=== PATIENT | female | born 2000 | race Caucasian/White ===

== ENCOUNTER 2025-02-22 08:55 | Day surgery (SDC) | payer OTHER, SELFPAY ==
[2025-02-22] VITALS (12 sets, daily range): BP systolic 124–145; BP diastolic 76–88; PULSE 65–87; RESP 14–16; TEMP 36.5–36.9; O2SAT 97–100; BMI 25.8; BMI 25.7
--- OUTSIDE RECORDS SUMMARY | 2025-02-22 08:57 | XMS_ITS | Clinical Summary ---
Author Organization [facility] Address [address] [place] [id number] Care Team Providers Care Termite Renewal Inspector Name Role Phone Pcp, No Primary Care Provider Unavailabl e Allergies No known active allergies Medications cefdinir 300 mg capsule Take 1 Capsule by mouth two times daily. 02/18/2025 Active Hospital, Clinic, or Other Facility Administered Medication Ordered Dose Route Frequency Start Date End Date Status copper intrauterine device (PARAGARD)Indications:pregna ncy contraception 1 Device IU Q 10 YEARS 01/11/2021 Active Active Problems Problem Noted Date Diagnosed Date Enlargement of lymph nodes 06/07/2008 Encounters Date Type Department Care Team Description 02/22/2025 8:35 AM CDT Office Visit [facility] [address] [place] [address] Sharmila Brown PA Throat Problem 02/22/2025 Travel 12/07/2024 9:25 AM CDT Office Visit [facility] [address] [place] [address] Sharmila Brown PA Cough 12/07/2024 Travel from Last 3 Months Immunizations Immunization Administration Dates Next Due DTaP 12/04/2005, 2,04/07/2001,01/31,2000 HIB-HepB (Comvax) 09/15/2001,01/31/2001,10/28/19 01 HPV 9 (Gardasil 9) 04/06/2019 Hepatitis A (Peds) 04/06/2019,06/08/2013 Human Papilloma Virus Vaccine 06/08/2013 Inactivated Polio Vaccine 12/04/2005,03/2002,01/31/2001,10/28 MENINGOCOCCAL VACCINE 2 VIAL [id number] (MENVEO) 04/06/2019 MMR 12/04/2005,02/13/2002 Meningococcal Vaccine (Menactra) 06/08/2013 Pneumococcal conj 7-Valent (Prevnar 7) 2 Tdap 04/27/2013 Varicella Vaccine 04/27/2013,09/15/2001 Family History Medical History Relation Name Comments No Known Problems Brother Hyperlipidemia Father Other Maternal Grandmother Heart m urmur Other Maternal Uncle Heart murmur Thyroid Disease Mother Cancer Paternal Grandfather ?lung No Known Problems Sister Asthma No Family History Relation Name Status Comments Brother Alive Father Alive Maternal Grandfather Alive Maternal Grandmother Alive Maternal Uncle Mother Alive Paternal Grandfather Paternal Grandmother Alive Sister Alive Social History Tobacco Use Types Packs/Day Years Used Date Smoking Tobacco: Never Smokeless Tobacco: Never Tobacco Cessation:Counseling Given: Yes Alcohol Use Standard Drinks/Week Comments Not Currently 0 (1 standard drink = 0.6 oz pur e alcohol) occasionally PHQ-2 Answer Date Recorded PHQ-2 TOTAL SCORE 0 05/04/2020 Social Connections Answer Date Recorded Do you often feel lonely or isolated from those around you? 0 12/07/2024 Financial Resource Strain Answer Date R ecorded Difficulty of Paying Living Expenses 3 12/07/2024 Difficulty of Paying Living Expenses Not on file 12/07/2024 Food Insecurity Answer Date Recorded Do you worry your food will run out before you are able to buy more? 1 12/07/2024 Transportation Needs Answer Date Record ed Does lack of transportation keep you from medica l appointments? 1 12/07/2024 Does lack of transportation keep you from work, meetings or getting things that you need? 1 12/07/2024 Housing Stability Answer Date Recorded What is your housing situation today? 1 12/07/2024 Utilities Answer Date Recorded Do you have trouble paying f or utilities (for example, heat, electricity, water, phone)? 1 12/07/2024 Comments No Sex and Gender Information Value Date Recorded Sex Assigned at Female 12/28/2020 7:11 AM CDT Legal Sex Female 5:42 AM MACHINE ROUGH ROUNDER Gender Identity Female 12/28/2020 7:11 AM CDT Sexual Orientation Straight 12/28/2020 7: 11 AM CDT Obstetrics History Last Filed Vital Signs Vital Sign Reading Time Taken Comments Blood Pressure 133/77 02/22/2025 8:27 AM CDT Pulse 70 02/22/2025 8:27 AM CDT Temperature 36.8 C (98.2 F) 02/22/2025 8:27 AM CDT Respiratory Rate - - Oxygen Saturation 99% 02/22/2025 8:27 AM CDT Inhaled Oxygen Concentration - - Weight 72.5 kg (159 lb 12.8 oz) 02/22/2025 8:27 AM CDT Height 165.1 cm (5' 5) 01/11/2021 7:31 AM CDT Body Mass Index - - Plan of Treatment Health Maintenance Due Date Last Done Comments HIV for age 15-65 2015 Hepatitis C screening for age 18-79 2018 Chlamydia for age 16-24 05/04/2021 05/04/2020 Depression screening for age 12+ 05/05/2021 05/05/2020, 05/04/2020, 04/06/2019 Pap test for age 21-65 2021 BMI (ht and wt on same day) for age 18+ 01/11/2022 01/11/2021, 12/28/2020, 05/04/2020, Additional history exists Tetanus booster 04/27/2023 04/27/2013 COVID-19 vaccine series ( season) 2024 05/29/2021, 04/21/2021 Influenza Vaccine (Season Ended) 2025 Hepatitis B series for 19+ Completed 09/15, 01/31/2001, 2000 Pneumococcal series for age 6-49 Aged Out 09/15/2001 No longer eligible based on patient's age to complete this topic Tdap Completed 04/27/2013 HPV series for age 9-26 Completed 04/06/2019, 06/08 Procedures Procedure Name Priority Date/Time Associated Diagnosis Comments THROAT RAPID STREP ONLY CLINIC Routine 12/07/2024 9:33 AM CDT Sore throat GC CHLAMYDIA TRACH PROBE Routine 05/04/2020 9:37 AM CDT Screen for STD (sexually transmitted disease) from Last 3 Months or Most Recently Relevant to Health Maintenance Results * THROAT RAPID STREP ONLY CLINIC (12/07/2024 9:33 AM CDT) Pathologist [facility] POC, GROUP A STREP NOT DETECTED NOT DETECTED [facility] Comment: The [employer] [employer] recommends that a throat culture be performed if a rapid group A streptococcus assay yields a negative result. [employer] recommends Streptococcus, Group A culture. Throat SPECIMEN FROM THROAT / Unknown 12/07/2024 9:33 AM CDT 12/07/2024 9:34 AM CDT Sharmila TRAMMELL MICROBIOLOGY Final Result [facility] [address] [place] [address], [facility] [address] [place] [address] * GC CHLAMYDIA TRACH PROBE (05/04/2020 9:37 AM CDT) Pathologist [facility] CHLAMYDIA PROBE Negative 0 1:16 PM CDT [facility] N GONORRHOEAE PROBE Negative 05/05/2020 1:16 PM CDT [facility] Other SPECIMEN FROM UTERINE CERVIX / Unknown Non-Blood / Unknown 05/04/2020 9:37 AM CDT 05/04/2020 9:47 AM CDT Claire TRAMMELL MICROBIOLOGY Final Result [facility] [address] [place] [address], [place] from Last 3 Months or Most Recently Relevant to Health Maintenance Insurance [employer] [place] [id number] Care Teams Termite Renewal Inspector Relationship Specialty Start Date End Date Pcp, No . PCP - General 11/16/15
--- OUTSIDE RECORDS SUMMARY | 2025-02-22 08:57 | XMS_ITS | Clinical Summary ---
Author Organization [facility] Address [address] [place], [place] [id number] Care Team Providers Care Ux Engineer Name Role Phone Establish, Need To MD Primary Care Provider [phone] Source Comments If you need additional information that is not available on Care Everywhere, please contact our Medical Records Department during business hours (Saturday - Saturday, 8 am - 5 pm) at . During nonbusiness hours, please contact our Trauma and Emergency Center at .[facility] and [facility] Allergies No known active allergies Medications * Medications may not be up to date as of this document. Always verify current medications with the patient. norethindrone ac-eth estradiol (09/28, , PO) Take by mouth Active Active Problems No known active problems Social History Tobacco Use Types Packs/Day Years Used Date Smoking Tobacco: Never Smokeless Tobacco: Never Depression ([facility]) Answer Date Recorded Depression Screening Score: 0 11/07 PHQ-4 TOTAL SCORE 0 11/19/2019 PHQ9 Not on file 11/19/2019 Suicide Risk Alert Not on file 11/19/2019 Comments No Sex and Gender Information Value Date Recorded Sex Assigned at Not on file Legal Sex Female 2:50 PM ADON Gender Identity Not on file Sexual Orientation Not on file Obstetrics History Last Filed Vital Signs Vital Sign Reading Time Taken Comments Blood Pressure 124/68 11/19/2019 11:12 AM CDT Pulse 86 11/19/2019 11:12 AM CDT Temperature 36.9 C (98.5 F) 11/19/2019 11:12 AM CDT Respiratory Rate 18 11/19/2019 11:1 2 AM CDT Oxygen Saturation 99% 11/19/2019 11: 12 AM CDT Inhaled Oxygen Concentration - - Weight 73.8 kg (162 lb 12.8 oz) 020 11:12 AM CDT Height 162.6 cm (5' 4) 09/27/2019 2:55 PM ADON Body Mass Index 27.94 09/27/2019 2:55 PM ADON Plan of Treatment Health Maintenance Due Date Last Done Comments CHLAMYDIA SCREEN 2016 CERVICAL CANCER SCREENING 2018 LIPID SCREEN 2018 WELLNESS VISIT 2018 PERTUSSIS 2019 DEPRESSION/ANXIETY PHQ4 11/18/2020 11/19/19 20, 11/19/2019, 11/19/2019 DTaP/Tdap/Td Vaccine (7 - Td or Tdap) 04/27/2023 04/27/2013, 12/04/2005, 02/13/2002, Additional history exists COVID-19 Vaccine ( season) 2024 Influenza Vaccine (Season Ended) 2025 RSV Vaccines (1 - 1-dose 75+ series) 2075 Hepatitis B Vaccine Completed 09/15/2001, 01/31/2001, 2000 Pneumococcal Vaccine: Pediatrics (0 to 5 Years) and At-Risk Patients (6 to 49 Years) Aged Out 09/15/2001 No longer eligible based on patient's age to complete this topic POLIO (IPV) Vaccine Completed 12/04/2005, 02/13/2002, 01/31/2001, Additional history exists HPV Vaccine Completed 04/06/2019, 06/08/2013 Insurance [facility] [place] [address] Care Teams Ux Engineer Relationship Specialty Start Date End Date Establish, Need To, [address] [facility] [place] [place], [place] [id number] PCP - General INSURANCE SALESPERSON 09/27/19
--- NOTE | 2025-02-22 09:17 | CRLHL7_ITS ---
For Patients: As a result of the Century Cures Act, medical imaging exams and procedure reports are released immediately into your electronic medical record. You may view this report before your referring provider. If you have questions, please contact your health care provider. INDICATION: Renetta throat, left-sided pain. COMPARISON: None. TECHNIQUE: CT of the neck with contrast. Multiplanar axial, coronal, and sagittal reformats were reconstructed. Intravenous contrast: 75 mL Isovue 370. FINDINGS: Lymph nodes: There are bilateral enlarged cervical lymph nodes that maintain a normal len contour in len enhancement. The largest lymph node is on the left at level II and measures 1.4 x 1.9 cm on series 5, image 36. Parotid and submandibular glands: Normal. Thyroid gland: Normal. Tonsils, airway, and parapharyngeal spaces: Enlarged hyperenhancing adenoid tissue, palatine tonsils, and lingual tonsils. There is a rim enhancing abscess in the left peritonsillar soft tissues that measures 2.6 x 2.0 x 2.4 cm (AP by transverse by cc). There is adjacent soft tissue edema. There is some effacement of the airway at that level without complete obstruction. The epiglottis and aryepiglottic folds are normal. The subglottic trachea is normal. Paranasal sinus: Small mucocele in the floor of the right maxillary sinus. No mucosal thickening or air-fluid levels. Soft tissues: Normal. No swelling. No foreign body. Arteries: No atherosclerosis. Veins: No deep vein thrombosis. Lung apices: Normal. Bones: a No focal bone lesions. Normal for age. Included intracranial contents, orbits and mastoids: Normal. IMPRESSION: Tonsillitis. Left peritonsillar abscess measures up to 2.6 centimeters. Effacement of the posterior oropharyngeal airway without complete obstruction. Reactive appearing bilateral cervical lymph nodes. Please note that all CT scans at this facility use dose modulation, iterative reconstruction, and/or weight-based dosing when appropriate to reduce radiation dose to as low as reasonably achievable. Dictated by Jazmine Jernigan MD @ 02/22/2025 10:22:49 AM (Electronically Signed)
--- NOTE | 2025-02-22 09:18 | ED_ITS ---
HPI - General Adult General Chief complaint: Sore Throat Stated complaint: can't open jaw all the way Time Seen by Provider: 02/22/25 09:14 Source: patient Mode of arrival: ambulatory Limitations: no limitations History of Present Illness HPI narrative: 24-year-old female sent over from the [facility] with concerns of peritonsillar abscess. Patient had strep pharyngitis approximately 3 weeks ago was treated and states that her symptoms had resolved. Approximately 1 week ago started developing sore throat again, was seen in the urgent care and started on cefdinir. States that symptoms really have not improved and ever since 4 days ago, symptoms have actually been getting worse. She describes a swelling in the back of the throat, pain, difficulty opening closing her mouth. She has been doing her best to eat and stay hydrated. No known fevers. Patient has a history of a peritonsillar abscess in 2019. Related Data Previous Rx's ?Medication ?Instructions ?Recorded cefdinir 300 mg capsule 300 mg PO Q12H 10 days #20 c aps 02/18/25 Allergies Allergy/AdvReac Type Severity Reaction Status Date / Time No Known Drug Allergies Allergy Verified 02/22/25 10:14 Review of Systems Status of ROS: Reports: 6 or more systems reviewed and unremarkable except as noted in History and below PFSH FOR[facility]LY [facility], [facility] Social History Smoking Status: Never smoker How often do you have a drink containing alcohol: never AUDIT-C Alcohol total score: 0 Non-prescribed substance use: denies use Exam Narrative: Exam Narrative: Well-nourished well-developed patient in no acute distress. Alert and oriented. Answers questions appropriately. Mood and affect are appropriate. Thoughts are goal oriented and rational. No tangential or magical thinking noted. Patient speaks in full sentences without needing to catch Her breath, however, she does have an obvious difficult time opening her mouth. HEENT: Normocephalic atraumatic. Pupils are equally round reactive to light. Extraocular muscles are intact. Conjunctivae are moist without any icterus note d. Moist mucous membranes. Posterior pharynx Shows left-sided tonsillar swelling and erythema, soft palate is protruding forward and is erythematous. Skin: Well perfused without any obvious rashes. Const: Vital Signs, click to edit/add: Vital Signs - 24 hr 02/22/25 08:58 02/22/25 11:00 Temperature 98.4 F Pulse Rate 68 Pulse Rate [Right Pulse Oximeter] 83 Respiratory Rate 16 16 Blood Pressure 138/88 Blood Pressure [Le ft Upper Arm] 145/78 H Pulse Oximetry 100 99 Oxygen Delivery Me thod Room Air Course Course ED Course: CT of the neck was ordered: This showed a 2.6 cm peritonsillar abscess. Labs show slightly elevated white count 11.3, hemoglobin 10.5, normal platelet count. Negative mono and negative strep A. Consulted with Dr. Rodriguez, who will take the patient to the OR. Vital Signs Vital signs: Initial Vital Signs Temperature 98.4 F 02/22/25 08:58 Temperature Source Temporal Artery Scan 02/22/25 08:58 Pulse Rate 83 02/22/25 08:58 Pulse Rhythm Regular 02/22/25 08:58 Pulse Strength 3+ Normal 02/22/25 08:58 Respiratory Rate 16 02/22/25 08:58 Blood Pressure 145/78 H 02/22/25 08:58 Blood Pressure Mean 100 02/22/25 08:58 Blood Pressure Position Sitting 02/22/25 08:58 Pulse Oximetry 100 02/22/25 08:58 Oxygen Delivery Method Room Air 02/22/25 08:58 Vital Signs Temperature 98.4 F 02/22/25 08:58 Pulse Rate 83 02/22/25 08:58 Respiratory Rate 16 02/22/25 08:58 Blood Pressure 145/78 H 02/22/25 08:58 Pulse Oximetry 100 02/22/25 08:58 Oxygen Delivery Method Room Air 02/22/25 08:58 Temperature 98.4 F 02/22/25 08:58 Pulse Rate 68 02/22/25 11:00 Respiratory Rate 16 02/22/25 11:00 Blood Pressure 138/88 02/22/25 11:00 Pulse Oximetry 99 02/22/25 11:00 Oxygen Delivery Method Room Air 02/22/25 08:58 Medical Decision Making MDM Narrative Medical decision making narrative: 24-year-old female with a peritonsillar abscess, management per above. Lab Data Lab results reviewed: Yes I reviewed the patient's lab results Labs: Lab Results 02/22/25 Range/Units 09:30 WBC 11.32 H (4.50-11.00) K/uL RBC 3.67 L (4.00-5.20) m/uL Hgb 10.5 L (12.0-16.0) gm/dL Hct 32.8 L (33.0-51.0) % MCV 89 (80-100) fL MCH 29 (26-34) pg MCHC 32 (32-36) gm/dL RDW Coeff of Sandra 12.8 (11.5-15.5) % Plt Count 381 (140-440) K/uL Neut % (Auto) 74.2 H (42.0-72.0) % Lymph % (Auto) 14.8 L (20-44) % Nicholas % (Auto) 9.2 (0.0-11.0) % Eos % (Auto) 1.4 (0.0-7.0) % Baso % (Auto) 0.2 (0.0-3.0) % Neut # (Auto) 8.40 H (1.7-7.0) K/uL Lymph # (Auto) 1.70 (0.90-2.90) K/uL Nicholas # (Auto) 1.00 H (0.00-0.90) K/UL Eos # (Auto) 0.20 (0.00-0.50) K/uL Baso # (Auto) 0.00 (0.00-0.30) K/uL Abs Immat Gran (auto) 0.00 (0.00-0.30) K/uL Imm/Tot Granulo (auto) 0.2 % Monoscreen Negative (Negative) Group A Strep DNA NOT DETECTED (Not Detectd) Imaging Data Soft tissue CT neck: Attestation: I have reviewed the pertinent imaging results. Radiologist's impression: TECHNIQUE: CT of the neck with contrast. Multiplanar axial, coronal, and sagittal reformats were reconstructed. Intravenous contrast: 75 mL Isovue 370. FINDINGS: Lymph nodes: There are bilateral enlarged cervical lymph nodes that maintain a normal len contour in len enhancement. The largest lymph node is on the left at level II and measures 1.4 x 1.9 cm on series 5, image 36. Parotid and submandibular glands: Normal. Thyroid gland: Normal. Tonsils, airway, and parapharyngeal spaces: Enlarged hyperenhancing adenoid tissue, palatine tonsils, and lingual tonsils. There is a rim enhancing abscess in the left peritonsillar soft tissues that measures 2.6 x 2.0 x 2.4 cm (AP by transverse by cc). There is adjacent soft tissue edema. There is some effacement of the airway at that level without complete obstruction. The epiglottis and aryepiglottic folds are normal. The subglottic trachea is normal. Paranasal sinus: Small mucocele in the floor of the right maxillary sinus. No mucosal thickening or air-fluid levels. Soft tissues: Normal. No swelling. No foreign body. Arteries: No atherosclerosis. Veins: No deep vein thrombosis. Lung apices: Normal. Bones: a No focal bone lesions. Normal for age. Included intracranial contents, orbits and mastoids: Normal. IMPRESSION: Tonsillitis. Left peritonsillar abscess measures up to 2.6 centimeters. Effacement of the posterior oropharyngeal airway without complete obstruction. Reactive appearing bilateral cervical lymph nodes. Discharge Plan Discharge Clinical Impression: Abscess, peritonsillar Patient Disposition: XFER to OR Condition: Stable Follow Up/Referrals: Provider,Not a Local [Primary Care Provider, Family Practice]
[2025-02-22 09:38] LABS: Basophils Percent Auto 0.2 % (0.0-3.0); Eosinophils Percent Auto 1.4 % (0.0-7.0); Hematocrit 32.8 % (33.0-51.0); Hemoglobin* 10.5 gm/dL (12.0-16.0); Immature Granulocytes Pct Auto 0.2 %; Lymphocytes Percent Auto 14.8 % (20-44); Mean Corpuscular HGB Conc 32 gm/dL (32-36); Mean Corpuscular Hemoglobin 29 pg (26-34); Mean Corpuscular Volume 89 fL (80-100); Monocytes Percent Auto 9.2 % (0.0-11.0); Neutrophils Percent Auto 74.2 % (42.0-72.0); Platelet Count* 381 K/uL (140-440); RDW Coefficient of Variation % 12.8 % (11.5-15.5); Red Blood Count 3.67 m/uL (4.00-5.20); White Blood Count* 11.32 K/uL (4.50-11.00)
[2025-02-22 09:43] LABS: Slide Review Reflex No
[2025-02-22 09:49] LABS: Mono Screen* Negative (Negative)
[2025-02-22 10:11] LABS: Strep A DNA Probe* NOT DETECTED (Not Detectd)
--- NOTE | 2025-02-22 11:32 | P.ANES_ITS ---
Anesthesia Charges Start Date/Time Anesthesia Start Date: 02/22/25 Anesthesia Start Time: 11:42 Stop Date/Time Anesthesia Stop Date: 02/22/25 Anesthesia Stop Time: 12:15 Summary Emergency: FARA Coding CPT Codes CPT Codes: ANESTH PROCEDURE ON MOUTH - 47739 ([id number]) P1 - NORMAL HEALTHY PATIENT, QK - CREDIT ANALYSIS MANAGER 2-4 CNCRNT ANES PROC, QX - HOME DAY CARE PROVIDER SVC W/ MD MED DIRECTION Additional Codes: Summary - Emergency: FARA ([id number])
--- NOTE | 2025-02-22 11:32 | W.ANESCHARGE ---
Anesthesia Charges Start Date/Time Anesthesia Start Date: 02/22/25 Anesthesia Start Time: 11:42 Stop Date/Time Anesthesia Stop Date: 02/22/25 Anesthesia Stop Time: 12:15 Summary Emergency: FARA Coding CPT Codes CPT Codes: ANESTH PROCEDURE ON MOUTH - 83706 ([id number]) P1 - NORMAL HEALTHY PATIENT, QK - DIRECTOR OF TEACHING AND LEARNING 2-4 CNCRNT ANES PROC, QX - NURSE ANESTHESIA PROGRAM DIRECTOR SVC W/ MD MED DIRECTION Additional Codes: Summary - Emergency: FARA ([id number])
[2025-02-22] MEDS: LACTATED RINGERS 1000 ML 1,000 ML 100 ML IV (11:35)
[2025-02-22 11:43] LABS: Ur HCG Qualitative* Negative (Negative)
--- NOTE | 2025-02-22 11:43 | P.ENTCN_ITS ---
HPI- ENT Consult Date of Consult Date Seen: 02/22/25 Patient: Other Consult date: 02/22/25 Requesting Physician: Other Primary Care Provider: Not a Local Provider Consult Narrative Reason for consult: Large left peritonsillar abscess Narrative: Monserrat Cantu is a 24 year old female one-week history of sore throat. Has been on antibiotics for approximately 1 week. Has had mono in the past but not tested positive not tested today. Now has trismus in CT revealed a large left peritonsillar abscess not impinging on upper airway but not lower airway. PFSH PFS Social History Smoking Status: Never smoker How often do you have a drink containing alcohol: never AUDIT-C Alcohol total score: 0 Non-prescribed substance use: denies use Meds Home Medications and Allergies Home Medications ?Medication ?Instructions ?Recorded ?Confirmed ?Type cefdinir 300 mg capsule 300 mg PO Q12H 10 days #20 c aps 02/18/25 02/22/25 Rx Allergies Allergy/AdvReac Type Severity Reaction Status Date / Time No Known Drug Allergies Allergy Verified 02/22/25 10:14 Exam Narrative: Exam Narrative: General skin neuro respiratory gait peripheral vascular vocal quality skin of head neck are all negative except trismus swelling left peritonsillar region left cervical adenopathy Const: Vital Signs, click to edit/add: Vital Signs - 24 hr 02/22/25 08:58 02/22/25 11:00 Temperature 98.4 F Pulse Rate 68 Pulse Rate [Right Pulse Oximeter] 83 Respiratory Rate 16 16 Blood Pressure 138/88 Blood Pressure [Le ft Upper Arm] 145/78 H Pulse Oximetry 100 99 Oxygen Delivery Me thod Room Air ENT-CN: Result Labs Labs: Short CBC 02/22/25 Range/Units 09:30 WBC 11.32 H (4.50-11.00) K/uL Hgb 10.5 L (12.0-16.0) gm/dL Hct 32.8 L (33.0-51.0) % Plt Count 381 (140-440) K/uL Assessment and Plan Assessment and plan (1) Abscess, peritonsillar: Status: Acute Plan Left peritonsillar abscess Not discussed incision and drainage. She should also consider tonsillectomy as this is her 2nd abscess. She cannot afford a 2 week recovery at this time so will plan on that at her clinic visit.
--- NOTE | 2025-02-22 12:06 | W.PM.ENTPROC ---
Procedure Note Date of procedure: 02/22/25 Procedure: Preop diagnosis left peritonsillar abscess Postop diagnosis same Procedure incision drainage left peritonsillar abscess with culture and irrigation Under general trach anesthesia patient was prepped and draped usual fashion. The McIvor mouth gag was inserted the tongue retracted forward. Incision was made over the bulge above the left tonsil. I immediately encountered the abscess. The opening was widened to 1 cm and a culture was obtained and all and a large amount of purulent drainage aspirated. The cavity was irrigated copiously bleeding was controlled. Bleeding was controlled with Coblation. The patient was extubated the operating taken recovery in satisfactory condition. Blood loss was 5 mL. Surgeon: Price Ortez MD
--- NOTE | 2025-02-22 12:34 | SUR.PHASEI ---
Patient came into PACU awake and appropriate. She denies pain or nausea. Ice pack and ice chips provided. 20 minutes later her pain level was a 3. Did not need medication.
--- NOTE | 2025-02-22 12:39 | SUR.PHASEI ---
Patient meets discharge criteria from PACU.
[2025-02-22] MEDS: IBUPROFEN 100 MG/5 ML SUSP 200 MG PO (12:51)
[2025-02-22] MEDS: OXYCODONE 1 MG/ML ORAL SOLN 5 MG PO (12:52)
--- NOTE | 2025-02-22 13:55 | P.ANES_ITS ---
Anesthesia Charges Start Date/Time Anesthesia Start Date: 02/22/25 Anesthesia Start Time: 11:42 Stop Date/Time Anesthesia Stop Date: 02/22/25 Anesthesia Stop Time: 12:15 Summary Emergency: ZOO VETERINARIAN Coding CPT Codes CPT Codes: ANESTH PROCEDURE ON MOUTH - 73404 ([id number]) P1 - NORMAL HEALTHY PATIENT, QK - JINGLE WRITER 2-4 CNCRNT ANES PROC, QX - ZOO VETERINARIAN SVC W/ MD MED DIRECTION Additional Codes: Summary - Emergency: ZOO VETERINARIAN ([id number])
--- NOTE | 2025-02-22 13:55 | W.ANESCHARGE ---
Anesthesia Charges Start Date/Time Anesthesia Start Date: 02/22/25 Anesthesia Start Time: 11:42 Stop Date/Time Anesthesia Stop Date: 02/22/25 Anesthesia Stop Time: 12:15 Summary Emergency: BROKERAGE BRANCH MANAGER Coding CPT Codes CPT Codes: ANESTH PROCEDURE ON MOUTH - 21429 ([id number]) P1 - NORMAL HEALTHY PATIENT, QK - MODEL MAKER 2-4 CNCRNT ANES PROC, QX - BROKERAGE BRANCH MANAGER SVC W/ MD MED DIRECTION Additional Codes: Summary - Emergency: BROKERAGE BRANCH MANAGER ([id number])
== END 2025-02-22 13:34 | disposition home or self-care (01) ==
LOC: ED 11:07 → SS 11:35
PROVIDERS: Anesthesiology; Emergency Provider Family Medicine; Visit Provider Otolaryngology
PROC: 0C9PXZZ Drainage of Tonsils, External Approach (ICD-10-PCS; CPT 42700; principal; 2025-02-22 11:30)
DX: J36 Peritonsillar abscess (principal)
CPT/HCPCS: 42700; 00170; 36415; 70491; 81025; 85025; 86308; 87070; 87075; 87205; 87651; 99140; 99284; 99285; A9270; J0330; J1100; J2250; J2371; J2405; J2704; J3010; J7120; Q9967

== ENCOUNTER 2025-06-04 07:34 | Day surgery (SDC) | payer OTHER, SELFPAY ==
[2025-06-04] VITALS (15 sets, daily range): BP systolic 109–136; BP diastolic 62–89; PULSE 52–71; RESP 12–16; TEMP 36.2–36.7; O2SAT 96–100; BMI 25.0
[2025-06-04 08:00] LABS: Ur HCG Qualitative* Negative (Negative)
[2025-06-04] MEDS: LACTATED RINGERS 1000 ML 1,000 ML 100 ML IV (08:16)
[2025-06-04] MEDS: SODIUM CHLORIDE 0.9 % (FLUSH) 10 ML SYRINGE IVF (08:16)
--- NOTE | 2025-06-04 09:32 | P.ANES_ITS ---
Anesthesia Charges Start Date/Time Anesthesia Start Date: 06/04/25 Anesthesia Start Time: 09:18 Stop Date/Time Anesthesia Stop Date: 06/04/25 Anesthesia Stop Time: 09:55 Coding CPT Codes CPT Codes: ANESTH PROCEDURE ON MOUTH - 32372 ([id number]) P1 - NORMAL HEALTHY PATIENT, QK - EXPLOSIVE ORDNANCE DISPOSAL MANAGER 2-4 CNCRNT ANES PROC, QX - MANAGER UI SVClare W/ MED DIRECTION
--- NOTE | 2025-06-04 09:32 | W.ANESCHARGE ---
Anesthesia Charges Start Date/Time Anesthesia Start Date: 06/04/25 Anesthesia Start Time: 09:18 Stop Date/Time Anesthesia Stop Date: 06/04/25 Anesthesia Stop Time: 09:55 Coding CPT Codes CPT Codes: ANESTH PROCEDURE ON MOUTH - 45601 ([id number]) P1 - NORMAL HEALTHY PATIENT, QK - FINISH GRINDER 2-4 CNCRNT ANES PROC, QX - SOFTWARE WRITER [facility] W/ MED DIRECTION
--- NOTE | 2025-06-04 09:53 | P.ANES_ITS ---
Anesthesia Charges Start Date/Time Anesthesia Start Date: 06/04/25 Anesthesia Start Time: 09:18 Stop Date/Time Anesthesia Stop Date: 06/04/25 Anesthesia Stop Time: 09:55 Coding CPT Codes CPT Codes: ANESTH PROCEDURE ON MOUTH - 10038 ([id number]) P1 - NORMAL HEALTHY PATIENT, QK - COURTROOM DEPUTY OR CALENDAR CLERK 2-4 CNCRNT ANES PROC, QX - SEMICONDUCTOR TESTING GROUP LEADER [facility] W/ MED DIRECTION
--- NOTE | 2025-06-04 09:53 | W.ANESCHARGE ---
Anesthesia Charges Start Date/Time Anesthesia Start Date: 06/04/25 Anesthesia Start Time: 09:18 Stop Date/Time Anesthesia Stop Date: 06/04/25 Anesthesia Stop Time: 09:55 Coding CPT Codes CPT Codes: ANESTH PROCEDURE ON MOUTH - 72248 ([id number]) P1 - NORMAL HEALTHY PATIENT, QK - PROCESS DESIGNER 2-4 CNCRNT ANES PROC, QX - STRATEGY ASSOCIATE [facility] W/ MED DIRECTION
[2025-06-04] MEDS: ACETAMINOPHEN 160 MG/5 ML CUP 320 MG PO (10:32)
[2025-06-04] MEDS: IBUPROFEN 100 MG/5 ML SUSP 200 MG PO (10:32)
--- NOTE | 2025-06-04 11:54 | W.PM.ENTPROC ---
Procedure Note Date of procedure: 06/04/25 Procedure: Preop diagnosis chronic tonsillitis tonsillar hypertrophy Postop diagnosis same Procedure tonsillectomy Under general trach anesthesia patient was prepped draped usual fashion. The McIvor mouth gag was inserted the tongue retracted forward. The right and left tonsils were removed with a combination of needlepoint bipolar cautery. Meticulous hemostasis was achieved with suction cautery. There was a small amount of nasopharyngeal tonsil tissue that was removed with suction cautery. The patient procedure well was taken recovery satisfactory condition. Blood loss was less than 10 mL. Surgeon: Price Ortez MD
== END 2025-06-04 12:07 | disposition home or self-care (01) ==
LOC: OR 07:35
PROVIDERS: Anesthesiology; Visit Provider Otolaryngology
PROC: (CPT 42826; principal; 2025-06-04 09:00)
DX: J35.01 Chronic tonsillitis (principal)
CPT/HCPCS: 42826; 00170; 81025; 88304; A9270; J0330; J1100; J2405; J2704; J3010; J3490; J7120

== ENCOUNTER 2025-07-14 11:56 | Outpatient (CLI) | payer OTHER, SELFPAY ==
[2025-07-14 12:23] LABS: Strep A DNA Probe* NOT DETECTED (Not Detectd)
== END 2025-07-14 11:57 | disposition home or self-care (01) ==
LOC: NFLDUCREF 11:56
PROVIDERS: Visit Provider Physician Assistant Surgical
DX: J02.9 Acute pharyngitis, unspecified (principal)
CPT/HCPCS: 87651